=== PATIENT | female | born 2000 | race Caucasian/White ===

== ENCOUNTER 2020-04-18 14:04 | Emergency (ER) | payer OTHER, SELFPAY ==
[2020-04-18] VITALS (26 sets, daily range): BP systolic 86–138; BP diastolic 62–88; PULSE 78–112; RESP 17–31; TEMP 37.3; O2SAT 88–100
--- NOTE | ~2020-04-18 | CT_ITS ---
EXAMINATION: CTA chest PE protocol DATE: 04/18/2020 19:29 INDICATION: Shortness of breath. TECHNIQUE: Computed tomography angiography (CTA) of the chest was performed with 100 mL Omnipaque-350 intravenous contrast timed to evaluate the pulmonary arteries. Coronal maximum intensity projection 3D-reconstructions were created by the technologist. Automated exposure control and iterative reconst ruction technique were employed. The dose-length product was 644.00 mGy-cm. COMPARISON: Chest CT 08/19/2014, left breast ultrasound 01/03/2019 FINDINGS: There are small airspace opacities in right upper lobe and lingula. There are patchy airspa ce and groundglass opacities in the lower lobes. These findings are consistent with pneumonia. No ple ural effusion. The heart size is normal. No pericardial effusion. There is no pulmonary embolus. 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 There is a chronic 8 mm mass in superior left breast, likely a fibroadenoma. There is a 1.8 cm mass in inferior right jaylin ast. There is mild thoracic spondylosis. IMPRESSION: 1. No pulmonary embolus. Sensitivity is moderately decreased by motion artifact. 2. Multifocal pneumonia. 3. 1.8 cm mass in inferior right breast. Ultrasound is recommended. Reviewed, dictated and finalized at location A. LATORY AFFAIRS MANAGER IMPRESSION: 1. No pulmonary embolus. Sensitivity is moderately decreased by motion artifact . 2. Multifocal pneumonia. 3. 1.8 cm mass in inferior right breast. Ultrasound is recommended.
--- NOTE | ~2020-04-18 | XR_ITS ---
EXAMINATION: XR chest 1V portable DATE: 04/18/2020 14:49 INDICATION: Shortness of breath. TECHNIQUE: A single frontal view of the chest was obtained. COMPARISON: Chest 2 views 08/19/2014, chest CT 08/19/2014 FINDINGS: There are patchy airspace opacities in the mid and lower lung zones. No pleural effusion or pneumothorax. The heart size is normal. IMPRESSION: 1. Patchy airspace opacities in the mid and lower lung zones, consistent with pneumonia. Reviewed, dictated and finalized at location A. R PACKER IMPRESSION: 1. Patchy airspace opacities in the mid and lower lung zones, consistent with p neumonia.
--- NOTE | 2020-04-18 14:07 | ECG_ITS ---
Measurements Intervals [place] Rate: 117 P: 46 CA: 128 QRS: 61 QRSD: 73 T: 30 QT: 308 QTc: 430 Interpretive Statements SINUS TACHYCARDIA BORDERLINE T WAVE ABNORMALITY- INFERIOR LEADS ABNORMAL ECG Electronically Signed On 04-18-2020 16:09:20 WORKFORCE INVESTMENT ACT CAREER MANAGER by Mitch Shaikh D.O.
[2020-04-18 14:37] LABS: Basophils Percent Auto 0.5 % (0.2-1.2); Eosinophils Percent Auto 0.2 % (0-4.4); Hematocrit 42.9 % (37.0-47.0); Hemoglobin 14.2 g/dL (12.0-15.0); Immature Granulocyte Absolute 0.01 K/mm3 (0.00-0.031); Immature Granulocyte Percent A 0.2 % (0-0.5); Lymphocytes Absolute Auto 1.48 K/mm3 (0.9-3.2); Lymphocytes Percent Auto 36.9 % (18.3-44.2); Mean Corpuscular HGB Conc 33.1 g/dl (32-36); Mean Corpuscular Hemoglobin 29.8 pg (26-34); Mean Corpuscular Volume 90.1 fl (80-100); Mean Platelet Volume 10.4 fl (7.4-10.4); Monocytes Absolute Auto 0.3 K/mm3 (0.1-0.6); Monocytes Percent Auto 7.2 % (2.6-8.5); Neutrophils Absolute Auto 2.2 K/mm3 (1.3-6.7); Platelet Count Result 194 k/mm3 (150-375); Red Blood Count 4.76 M/mm3 (4.2-5.4); Red Cell Distribution Width 12.5 % (11.5-14.5)
--- NOTE | 2020-04-18 14:47 | PC.NURSE ---
Addendum entered by Rosemary Lo RN 04/18/20 15:40: patient states she woke up this am with cough. states her RA sat at home was 89%. wants to wait on starting IV access. Original Note: patient brought back to ED room 13 with c/o cough and bodyaches. denies known fever at home. 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 states she has been exposed to Covid and she does have some coworkers (+) for Covid. resting on stretcher. placed on head scorer. covid swab done at bedside waiting for further orders from provider.
[2020-04-18 14:48] LABS: Anion Gap 9 mmol/L (8-16); Blood Urea Nitrogen 7 mg/dL (7-17); Calcium 8.5 mg/dL (8.4-10.2); Carbon Dioxide 29 mmol/L (22-30); Chloride 102 mmol/L (98-107); Estimated CRCL calculation 137 ml/min; Estimated Glomerular Filt Rate > 60; Glucose 104 mg/dL (65-105); Sodium 140 mmol/L (137-145)
--- NOTE | 2020-04-18 14:56 | PC.NURSE ---
called Preeti bermudez (?), added on D [address] [id number]
--- NOTE | 2020-04-18 15:09 | ED.URI ---
HPI - URI/Sore Throat General Chief Complaint: Shortness of Breath/Dyspnea Stated Complaint: Possible COVID SOB Time Seen by Provider: 04/18/20 14:39 Source: patient Mode of arrival: ambulatory Limitations: no limitations History of Present Illness HPI Narrative: Patient is a 18-year-old female complaining of cough nonproductive, shortness of breath, body aches, fever, loss of taste, nausea that started approximately 1 week ago. Patient states that she has been exposed to Covid from work. Patient denies any chest pain, abdominal pain, diarrhea or any urinary symptoms. Related Data Allergies Allergy/AdvReac Type Severity Reaction Status Date / Time clindamycin AdvReac Nausea and Verified 04/18/20 17:14 Vomiting Review of Systems Review of Systems: All systems reviewed & are unremarkable except as noted in HPI and below Constitutional: Constitutional: Denies body ache(s), Denies chills, Denies excessive sweating, Denies fatigue, Denies headache(s), Denies lethargy, Denies weakness and Denies weight loss Eyes: Eyes: Denies blurry vision, Denies change in vision and Denies loss of vision ENT: Denies dizziness, Denies ear discharge, Denies headache(s), Denies lip swelling, Denies epistaxis, Denies nasal congestion, Denies neck pain, Denies throat swelling and Denies tongue swelling Cardiovascular: Cardiovascular: Denies chest pain, Denies chest pain at rest, Denies chest pain with activity, Denies diaphoresis, Denies rapid heart rate, Denies edema, Denies irregular heart rhythm, Denies lightheadedness and Denies palpitations Respiratory: Respiratory: Denies chest congestion and Denies hemoptysis Gastrointestinal: Gastrointestinal: Denies abdominal pain, Denies melena, Denies hematochezia, Denies diarrhea, Denies nausea, Denies vomiting and Denies hematemesis Musculoskeletal: Musculoskeletal: Denies abnormal gait, Denies deformity, Denies joint swelling, Denies limited range of motion, Denies neck pain and Denies numbness Neurologic: Denies Abnormal speech present, Denies abnormal gait, Denies confusion, Denies dizziness, Denies headache(s), Denies focal weakness, Denies loss of vision, Denies numbness, Denies Other visual disturbances, Denies Sensory deficit (Neuro) and Denies weakness Psychiatric: Psychiatric: Denies confusion, Denies depression, Denies auditory hallucinations, Denies homicidal ideation and Denies suicidal ideation Endocrine: Endocrine: Denies cold intolerance, Denies excessive sweating, Denies fatigue, Denies heat intolerance and Denies palpitations Hematologic/Lymphatic: Hematologic/Lymphatic: Denies easy bleeding and Denies easy bruising Allergic/Immunologic: Allergic/Immunologic: Denies lip swelling, Denies throat swelling and Denies tongue swelling [facility] Social History Social History Gender identity (if verbalized by the patient): Female Exam Const: General: cooperative, healthy appearing, comfortable, no acute distress, well developed, alert and awake; No confusion Orientation/consciousness: oriented to person, oriented to place, oriented to time, patient oriented x3 and No confusion Limitations: no limitations HENMT: Head: normal to inspection, normocephalic and atraumatic Ears: hearing grossly normal bilaterally, TM normal on the right and TM normal on the left General nose exam: Normal external nose present, Normal nares present and No nasal discharge present Face and sinus: normal facial exam Mouth: Yes Normal oral and palatal mucosa present, Yes lip normal, Yes tongue normal and Yes oropharynx normal Throat: posterior oropharynx normal, tonsils normal and uvula midline Eyes: General: appearance normal, both eyes and all related structures Pupils: Equal, round and reactive pupils present EOM: EOMs intact bilaterally Neck: Neck: normal visual inspection, full ROM, no lymphadenopathy and no meningeal signs Chest: Chest palpation & inspection: normal inspection of the chest Resp: Effor
--- NOTE | 2020-04-18 15:26 | PC.NURSE ---
resting on stretcher. no change in condition. on monitor. waiting for room assignment upstairs. son in room. aware that can go upstairs after patient is transferred.
--- NOTE | 2020-04-18 16:50 | PC.NURSE ---
patient resting on stretcher. updated on lab results. d-dimer is elevated. waiting for further orders from provider. on monitor. denies needs.
--- NOTE | 2020-04-18 17:13 | PC.NURSE ---
SL inserted due to order for CT PE study. patient updated on plan of care and treatment. patient states that she tried to talk to the physician and give him her history and symptoms. states that he wasn't really listening to me . denies needs at this time. has call light in reach.
--- NOTE | 2020-04-18 18:35 | PC.NURSE ---
CT now calling about test prior to CT chest. will have serum Hcg added to labs.
[2020-04-18 19:04] LABS: SPREG INTERNAL CONTROL Positive; Serum Qual hCG Negative
[2020-04-19 02:42] LABS: SARS-CoV-2 RNA PCR Positive
== END 2020-04-18 20:41 | disposition home or self-care (01) ==
PROVIDERS: Emergency Medicine; Emergency Provider Emergency Medicine
DX: U07.1 COVID-19 (principal); J12.89 Other viral pneumonia; R00.0 Tachycardia, unspecified
CPT/HCPCS: 36415; 71045; 71275; 80048; 84703; 85025; 85380; 87635; 93005; 99284; C9803; Q9967; U0003

== ENCOUNTER 2024-11-30 11:06 | Emergency (ER) | payer OTHER, SELFPAY ==
[2024-11-30] VITALS (11 sets, daily range): BP systolic 104–144; BP diastolic 58–94; PULSE 79–106; RESP 13–25; TEMP 36.4–36.8; O2SAT 95–100
--- NOTE | ~2024-11-30 | US_ITS ---
EXAMINATION: US abdomen limited DATE: 11/30/2024 13:44 INDICATION: Positive Butler sign. TECHNIQUE: Multiple grayscale and Doppler ultrasound images of the abdomen were obtained. COMPARISON: None FINDINGS: The pancreatic head and body are normal in appearance. The pancreatic tail is not visualized. The vi sualized proximal inferior vena cava is normal. Liver has normal echogenicity and contour, with a smo oth surface. No liver lesion identified. No intrahepatic biliary duct dilation suspected. Portal veno us flow was seen in the hepatopetal, normal direction and has normal Doppler waveform. The gallbladde r is normal in appearance. There is no cholelithiasis. The common bile duct measures 4 mm, which is normal. Sonographic Butler sign was reported as negative by the pipe buffer.Visualized portion of the right kidney demonstrates normal contour and echogenicity with no hydronephrosis. IMPRESSION: 1. Normal right upper quadrant ultrasound. Reviewed, dictated and finalized at location A.
--- NOTE | ~2024-11-30 | CT_ITS ---
CT abdomen pelvis w con Ordering provider: Orquidea Baugh MD History: 24 years Female with . persistent RUQ pain . Comparison: None. Technique: CT abdomen and pelvis with IV and without oral contrast. Automated exposure control and it erative reconstruction technique were employed. The dose-length product was 851.60 mGy-cm. 100 mL Omn ipaque 350 was given IV. Findings: VISUALIZED LOWER CHEST: Dependent atelectatic changes. UPPER ABDOMINAL ORGANS: Liver: Normal. Gallbladder: Distended with no definite stones. Spleen: Normal. Stomach/duodenum: Normal. Pancreas: Normal. Adrenals: Normal. Kidneys: Normal. PELVIC ORGANS: The bladder is normal. Left ovarian cyst measuring 1.3 cm. IUD is seen in the uterus. BOWEL AND MESENTERY: Colon: No evidence of diverticulitis. Fecal material is loaded in the colon. The appendix is not demo nstrated. Small Bowel: Normal. No obstruction. Peritoneum/mesentery: No free air or free fluid. No mesenteric lymphadenopathy. RETROPERITONEUM: Normal aorta. No retroperitoneal lymphadenopathy. MUSCULOSKELETAL: Superficial soft tissues: The superficial soft tissues are normal. Bones: Normal spine. IMPRESSION: 1. No evidence of appendicitis, diverticulitis or intestinal obstruction. 2. Constipation. 3. Distended gallbladder with no definite stones. Reviewed, dictated and finalized at location A.
--- NOTE | 2024-11-30 12:08 | PC.NURSE ---
pt states unable to pee at this time
[2024-11-30 12:13] LABS: Basophils Percent Auto 0.6 % (0.2-1.2); Eosinophils Absolute Auto 0.1 K/mm3 (0-0.3); Eosinophils Percent Auto 1.2 % (0-4.4); Hematocrit 38.1 % (37.0-47.0); Hemoglobin 12.2 g/dL (12.0-15.0); Immature Granulocyte Absolute 0.02 K/mm3 (0.00-0.031); Immature Granulocyte Percent A 0.3 % (0-0.5); Mean Corpuscular Hemoglobin 27.1 pg (26-34); Mean Corpuscular Volume 84.7 fl (80-100); Mean Platelet Volume 10.9 fl (7.4-10.4); Monocytes Absolute Auto 0.3 K/mm3 (0.1-0.6); Neutrophils Absolute Auto 4.6 K/mm3 (1.3-6.7); Neutrophils Percent Auto 67.9 % (45.5-73.1); Platelet Count Result 261 k/mm3 (150-375); Red Cell Distribution Width 14.4 % (11.5-14.5); White Blood Count 6.8 K/mm3 (4.5-10.0)
[2024-11-30 12:23] LABS: Alanine Aminotransferase 32 U/L (6-35); Albumin Level 4.4 g/dL (3.5-5.1); Alkaline Phosphatase 89 U/L (38-126); Anion Gap 12 mmol/L (4-12); Aspartate Amino Transferase 26 U/L (14-36); Bilirubin,Total 0.4 mg/dL (0.2-1.3); Blood Urea Nitrogen 12 mg/dL (7-17); Calcium 9.3 mg/dL (8.4-10.2); Carbon Dioxide 20 mmol/L (22-30); Chloride 107 mmol/L (98-107); Estimated CRCL calculation 91 ml/min; Estimated Glomerular Filt Rate > 60; Glucose 116 mg/dL (65-110); Lipase 64 U/L (23-300); Potassium 4.3 mmol/L (3.4-5.0); Sodium 139 mmol/L (137-145); Total Protein 7.8 g/dL (6.3-8.2)
[2024-11-30] MEDS: MORPHINE SULFATE (*CRX) 4 MG/ML INJ IV PUSH ×2 (12:47→15:48)
--- NOTE | 2024-11-30 12:51 | ED.ABDPAIN ---
HPI - Abdominal Pain General Chief Complaint: Abdominal Pain Stated Complaint: RUQ pain Time Seen by Provider: 11/30/24 12:28 Source: patient Mode of arrival: ambulatory Limitations: no limitations History of Present Illness HPI narrative: Patient presents right upper quadrant pain that started shortly after getting off of work at 7:00 a.m.. 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 She had intense nausea and vomiting associated with this although since resolved. She is one a GLP1 medication, Retitutride, and notes that she skipped her dose last week but did take today's dose at 6:30 a.m.. She has a history of incidentally found gallstones but she has otherwise been asymptomatic , has never had an issue like this before or discussed with a general surgeon. She does not have a cough but she has been having to a use her inhaler more frequently for her history of asthma. She has a previous history of to Caesarean sections but no other abdominal surgeries. No fevers or chills. She had a bowel movement at 4:00 a.m. denies any diarrhea, constipation, or bloody stools. She describes the pain as a burning sensation that radiates towards her chest. Her last menstrual period was 3 weeks ago reportedly normal in duration and flow. She has an IUD. She has not been using NSAIDs recently. She notes that she drinks perhaps twice each month. When she does she has 8-10 drinks at a time although this last occurred 3 weeks ago approximately. She reports that she passed out (losing muscle tone and consciousness) 2 times due to the pain this morning. 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 HEAD: Normocephalic, atraumatic. EYES: Non injected, non icteric ENT: Nares clear, no rhinorrhea or epistaxis. Gross auditory acuity intact. NECK: Supple. No meningismus. CHEST: Speaking in full sentences. No respiratory distress. HEART: Tachycardic rate and rhythm. . ABDOMEN: Obese but Soft, nondistended. No rigidity or guarding. Not peritoneal. Butler sign positive. EXTREMITIES: Normal range of motion. No lower extremity edema. SKIN: Warm, dry, no rash. NEURO: No focal deficits. Alert and oriented. Answering questions. Following commands. Normal speech without aphasia or dysarthria. PSYCH: Normal mood and affect. Course Vital Signs Vital signs: Vital Signs Temperature 97.6 F 11/30/24 11:08 Pulse Rate 106 H 11/30/24 11:08 Respiratory Rate 22 H 11/30/24 11:08 Blood Pressure 144/94 H 11/30/24 11:08 Pulse Oximetry 100 11/30/24 11:08 Oxygen Delivery Room Air 11/30/24 11:08 Temperature 98.3 F 11/30/24 18:16 Pulse Rate 102 H 11/30/24 18:16 Respiratory Rate 17 11/30/24 18:16 Blood Pressure 114/79 11/30/24 18:16 Pulse Oximetry 100 11/30/24 18:16 Oxygen Delivery Room Air 11/30/24 12:00 MDM - Abdominal Pain MDM Narrative Medical decision making narrative: Patient presents with report of right upper quadrant abdominal pain that started acutely and was associated with nausea and vomiting. The nausea and vomiting has since resolved. In the emergency department she is afebrile with vital signs notable for hypertension, mild tachycardia, and mild tachypnea. The tachycardia resolved without intervention. Patient states that around the time that she was given morphine (she took 2mg rather than 4mg ordered) her symptoms had improved; only a lingering ache. No more nausea/vomiting. Butler positive on my exam so will order RUQ US but defer CT imaging at this time given otherwise Patient does not have leukocytosis or elevated LFTs. Patient reportedly had 2 episodes of syncope due to pain. [place] Syncope Rule: Congestive heart failure history: No Hematocrit <30%: No EKG abnormal (changed or any non-sinus rhythm): No SOB symptoms: No SBP <90mmHg at triage: No test negative. Urinalysis unremarkable. Orthostatics reassuring. Patient reassessed at approximately 2:30 p.m.. She states she has continued to have some pain and is concerned that there remains underlying issue given the degree of intensity of her earlier symptoms the fact that they are lingering. For this reason through shared decision making we elected to proceed with CT abdominal pelvis imaging. No surgical process on this including no jovanna biliary pathology other than gallbladder distention though patient does appear constipated. MiraLax ordered while in the emergency department patient discharged with prescriptions for a bowel regimen to include stool softener and laxative. Provided referral contact information for a PCP. Otherwise stable for discharge. Differential Diagnosis Differential diagnosis: Likely abdominal pain, calculus of kidney, constipation, diverticulitis, endometriosis, pancreatitis and other (Biliary etiology (spectrum of biliary colic, cholecystitis, choledocholithiasis, cholangitis); gastritis; lobar pneumonia) Lab Data Attestation: I reviewed the patient's lab results. Lab results narrative: CBC and lipase unremarkable 11/30/24 12:07 11/30/24 12:07 Labs: Lab Results 11/30/24 11/30/24 11/30/24 Range/Units 12:07 13:49 13:52 WBC 6.8 (4.5-10.0) K/mm3 RBC 4.50 (4.2-5.4) M/mm3 Hgb 12.2 (12.0-15.0) g/dL Hct 38.1 (37.0-47.0) % MCV 84.7 (80-100) fl MCH 27.1 (26-34) pg MCHC 32.0 (32-36) g/dl RDW 14.4 (11.5-14.5) % Plt Count 261 (150-375) k/mm3 MPV 10.9 H (7.4-10.4) fl Immature Gran % (Auto) 0.3 (0-0.5) % Neut % (Auto) 67.9 (45.5-73.1) % Lymph % (Auto) 25.0 (18.3-44.2) % [place] % (Auto) 5.0 (2.6-8.5) % Eos % (Auto) 1.2 (0-4.4) % Baso % (Auto) 0.6 (0.2-1.2) % Lymph # (Auto) 1.70 (0.9-3.2) K/mm3 [place] # (Auto) 0.3 (0.1-0.6) K/mm3 Eos # (Auto) 0.1 (0-0.3) K/mm3 Baso # (Auto) 0.0 (0.0-0.1) K/mm3 Abs Immat Gran (auto) 0.02 (0.00-0.031) K/mm3 Absolute Neuts (auto) 4.6 (1.3-6.7) K/mm3 Absolute Nucleated RBC 0.000 (0.0-0.012) K/mm3 Nucleated RBC % 0.0 (0.0-0.2) % Sodium 139 (137-145) mmol/L Potassium 4.3 (3.4-5.0) mmol/L Chloride 107 (98-107) mmol/L Carbon Dioxide 20 L (22-30) mmol/L Anion Gap 12 (4-12) mmol/L BUN 12 D (7-17) mg/dL Creatinine 0.90 (0.7-1.0) mg/dL Estim Creat Clear Calc 91 ml/min Estimated GFR > 60 (59 - ) Glucose 116 H (65-110) mg/dL Calcium 9.3 (8.4-10.2) mg/dL Total Bilirubin 0.4 (0.2-1.3) mg/dL AST 26 (14-36) U/L ALT 32 (6-35) U/L Alkaline Phosphatase 89 (38-126) U/L Total Protein 7.8 (6.3-8.2) g/dL Albumin 4.4 (3.5-5.1) g/dL Lipase 64 (23-300) U/L Urine Color Yellow (Yellow) Urine Appearance Clear (Clear) Urine pH 8.0 (5.0-9.0) Ur Specific [place] 1.010 (1.001-1.035) Urine Protein Negative (Negative) mg/dL Urine Glucose (UA) Negative (Negative) mg/dL Urine Ketones Negative (Negative) mg/dL Ur Blood (Man) Negative (Negative) Urine Nitrate Negative (Negative) Urine Bilirubin Negative (Negative) Urine Urobilinogen 0.2 (<2.0) mg/dL Leukocyte Esterase Rfl Negative (Negative) EVIN/UL POC Urine HCG, Qual Negative (Negative) Imaging Data Radiologist's impression: ITS Impressions Abdomen Ultrasound 11/30/24 13:50 IMPRESSION: 1. Normal right upper quadrant ultrasound. Abdomen/Pelvis CT 11/30/24 17:10 IMPRESSION: 1. No evidence of appendicitis, diverticulitis or intestinal obstruction. 2. Constipation. 3. Distended gallbladder with no definite stones. ECG Data EKG #1: Attestation: I personally reviewed and interpreted this ECG as follows: ECG completion date: 11/30/24 ECG completion time: 13:18 Interpretation: Normal sinus rhythm at a rate of 89 beats per minute. UT interval 165. QRS 90. QT/QTC 348/395. Good R-wave progression across the precordial leads. T-wave inversion in 3 but otherwise upright in normal in contiguous inferior leads and no other T-wave inversions. Normal ECG. Discharge Plan Discharge Clinical Impression: Abdominal pain, RUQ, Enlarged gallbladder, Constipation Patient Disposition: Home Condition: Stable Instructions: Antibiotic Form, Constipation (ED), Biliary Colic (ED), High Fiber Diet (ED), Abdominal Pain (ED) Additional Instructions: Your workup did show that you have constipation and this can cause intense pain. Recommend increasing your hydration, increasing fiber intake, and taking a combination of a bowel regimen that includes stool softener (fiber/psyllium), Miralax, and, if needed, a laxative (magnesium citrate). Follow-up with your primary care physician. If you do not have 1 the name of the doctors listed below. Return to the emergency department with any new or worsening symptoms such as if the pain worsens, develops fever, persistent and uncontrolled vomiting. Patient Language: Persian Prescriptions: New polyethylene glycol 3350 [Miralax] 17 gram/dose powder 17 g PO DAILY Qty: 119 0RF psyllium husk [Metamucil] 0.4 gram capsule 0.4 g PO DAILY Qty: 30 0RF magnesium citrate Solution 150 ml PO DAILY PRN (Reason: constipation) Qty: 296 0RF No Action doxycycline hyclate 100 mg capsule 100 mg PO BID 7 Days Qty: 14 0RF ondansetron 4 mg tablet,disintegrating 4 mg PO Q8H PRN (Reason: nausea and vomiting) Qty: 12 0RF Follow-up/Referrals: PHYSICIAN,[employer] BUSINESS OBJECTS DEVELOPER [Primary Care Provider] - Skip Bentley MD [Physician] - (Family practice/primary care physician) Stand Alone Forms: Work/School Release IP Time of Disposition: 17:34
--- NOTE | 2024-11-30 12:52 | PC.NURSE ---
Pt states still unable to pee
--- NOTE | 2024-11-30 12:59 | ECG_ITS ---
Test Date: 2024-11-30 13:18:49 Measurements Intervals [place] Rate: 89 P: 21 MT: 165 QRS: 5 QRSD: 90 T: 14 QT: 348 QTc: 425 Interpretive Statements SINUS RHYTHM BASELINE ARTIFACT- I, II, III, AVR, AVL, AVF NORMAL ECG No previous ECG available for comparison Electronically Signed On 11-30-2024 13:43:16 CDT by Mitch Shaikh D.O.
[2024-11-30] MEDS: SODIUM CHLORIDE 0.9% IV 1,000 ML 999 ML IV CONT (13:23)
[2024-11-30 13:54] LABS: BEDSIDEPREGUCG Negative (Negative)
[2024-11-30 13:58] LABS: Add Urine Microscopic? NO; Appearance Urine Clear (Clear); Bilirubin Urine Negative (Negative); Blood Urine Negative (Negative); Color Urine Yellow (Yellow); Glucose Urine UA Negative (Negative); Ketones Urine Negative (Negative); Leukocyte Esterase Ur Negative LEU/UL (Negative); Nitrate Urine Negative (Negative); Protein Urine Negative (Negative); Urobilinogen Urine 0.2 mg/dL (<2.0)
[2024-11-30] MEDS: DICYCLOMINE HCL 10 MG CAPSULE 20 MG PO (15:00)
== END 2024-11-30 18:19 | disposition home or self-care (01) ==
PROVIDERS: Emergency Provider Student in an Organized Health Care Education/Training Program
DX: K59.00 Constipation, unspecified (principal); K82.8 Other specified diseases of gallbladder; R10.11 Right upper quadrant pain
CPT/HCPCS: 36415; 74177; 76705; 80053; 81003; 81025; 83690; 85025; 93005; 96361; 96374; 96375; 96376; 99284; A9270; J2270; J2405; J2704; J7030; Q9967